=== PATIENT | male | born 1960 | race Caucasian/White ===

== ENCOUNTER 2021-05-13 22:13 | Emergency (ER) | payer BC ==
[~2021-05-13] VITALS: Ht 182.9 cm; Wt 104.3 kg
[~2021-05-13 22:13] MED LIST: LIPITOR20 MG PO; LISINOPRIL20 MG PO; LO-DOSE ASPIRIN81 M1 PO
[2021-05-13 23:25] LABS: ABSOLUTE EOSINOPHILS 0.1 thou/uL (0.0-0.7); ABSOLUTE LYMPHOCYTES 0.4 thou/uL (0.8-5.3); ABSOLUTE MONOCYTES 0.8 thou/uL (0.0-1.2); ABSOLUTE NEUTROPHILS 4.4 thou/uL (1.6-8.1); BASOPHILS 0.4 %; EOSINOPHILS 2.6 %; HEMATOCRIT 45.4 % (42.0-52.0); HEMOGLOBIN 15.4 gm/dL (14.0-18.0); LYMPHOCYTES 7.3 %; MCV 85.5 fL (80.0-100.0); MPV 6.3 fl. (7.2-11.1); NUCLEATED RBCS 0 /100WBC; PLATELET COUNT* 241 thou/uL (150-400); POLYS 75.7 %; RBC 5.31 mil/uL (4.50-6.00); RDW-CV 15.4 % (10.5-14.5); WBC 5.9 thou/uL (4.0-11.0)
[2021-05-13 23:55] LABS: CALCIUM 8.4 mg/dL (8.5-10.1); CREATININE 0.8 mg/dL (0.6-1.3); POTASSIUM 4.3 mmol/L (3.5-5.1)
[2021-05-14] LABS: ALBUMIN 3.6 g/dL (3.4-5.0); TOTAL BILIRUBIN 0.4 mg/dL (<0.1-1.0); TOTAL PROTEIN 6.8 g/dL (6.4-8.2)
[2021-05-14 01:07] LABS: PROTIME 10.2 Seconds (9.20-11.50)
[2021-05-14 01:28] VITALS: BP 147/84
--- NOTE | 2021-05-14 08:55 | EKG ---
[place] [address] ELECTROCARDIOGRAM REPORT Name: CASTILLOMICHELA Room: [facility]#: [id number] Admission: 05/13/21 Attend Phys: Discharge: 05/14/21 Date of : 58 Date of Service: 05/13/212247 Report #: [id number] THIS REPORT FOR: //name// [facility] ED Test Date: 2021-05-13 Test Time: 22:48:48 Pat Name: MICHELA CASTILLO Department: Room: Gender: Food Preparation Supervisor: : 1960 Requested By: Kevin Pineda Order Number: [id number] MD: Maurice Zheng Measurements Intervals [place] Rate: 80 P: 30 AL: 146 QRS: 38 QRSD: 96 T: 38 QT: 368 QTc: 425 Interpretive Statements Sinus rhythm No previous ECG available for comparison Electronically Signed On 05-14-2021 8:55:35 ENGINEERING PROGRAM MANAGER by Maurice Zheng [email or web address] <ELECTRONICALLY SIGNED> By: Maurice Zheng MD, [facility] 05/14/2155 47 47 Maurice Zheng MD, FACC /EPI
== END 2021-05-14 01:23 | disposition short-term general hospital (02) ==
LOC: M.ERS 22:13
PROVIDERS: Nurse Practitioner Psychiatric/Mental Health; Personal Emergency Response Attendant
DX: S06.5X9A Traumatic subdural hemorrhage with loss of consciousness of unspecified duration, initial encounter (principal); Z20.822 Contact with and (suspected) exposure to COVID-19; F10.129 Alcohol abuse with intoxication, unspecified; G47.30 Sleep apnea, unspecified; Y90.9 Presence of alcohol in blood, level not specified; Z90.89 Acquired absence of other organs; Z79.82 Long term (current) use of aspirin; Z79.899 Other long term (current) drug therapy; W22.8XXA Striking against or struck by other objects, initial encounter; Y93.89 Activity, other specified; Y92.89 Other specified places as the place of occurrence of the external cause; Y99.8 Other external cause status